=== PATIENT | female | born 1965 | race Caucasian/White ===

== ENCOUNTER 2018-02-10 15:15 | Outpatient (CLI) | payer BC | END 2018-02-10 15:16 | disposition home or self-care (01) | LOC: BICMAMMO 15:15 | PROVIDERS: ATTEND Orthopaedic Surgery | DX: Z12.31 Encounter for screening mammogram for malignant neoplasm of breast (principal) | CPT/HCPCS: 77063; 77067 ==

== ENCOUNTER 2018-07-22 14:16 | Outpatient (CLI) | payer BC ==
--- NOTE | 2018-07-22 15:50 | MRI ---
MRI lumbar spine noncontrast: HISTORY: Left hip pain COMPARISON: 08/03/2006 FINDINGS: Appropriate T1 marrow signal intensity of the lumbar vertebra. Lumbar spine vertebral body height is maintained. No fracture. No significant STIR hyperintensity to suggest vertebral body edema or ligamentous injury. Minimal height 1 Modic changes at L2-L3 T12-L1:No significant central canal stenosis or neural foraminal narrowing L1-L2:No significant central canal stenosis or neural foraminal narrowing L2-L3:No significant central canal stenosis or neural foraminal narrowing L3-L4:No significant central canal stenosis or neural foraminal narrowing. In the left neural foramen , there appears to be an increase in size with subtle T2 hyperintensity involving the left L3 nerve root. L4-L5:No significant central canal stenosis or neural foraminal narrowing L5-S1:No significant central canal stenosis or neural foraminal narrowing IMPRESSION: 1. No significant central canal stenosis or neural foraminal narrowing 2. Increased size and subtle T2 hyperintensity involving the left L3 nerve root. Findings may repres ent a nerve sheath tumor versus focal neuritis. Postcontrast imaging is recommended. 3. CODE T
== END 2018-07-22 14:17 | disposition home or self-care (01) ==
LOC: TBSIIMAG 14:16
PROVIDERS: ATTEND Orthopaedic Surgery
DX: M25.552 Pain in left hip (principal); G54.9 Nerve root and plexus disorder, unspecified
CPT/HCPCS: 72148